=== PATIENT | male | born 1960 | race Caucasian/White ===

== ENCOUNTER 2018-07-21 09:51 | Inpatient (IN) ==
--- NOTE | 2018-07-06 08:55 | PAT Medication Instructions ---
Medication Instructions Date of Service July 06, 2018 Home Medications aspirin [Aspir-81] 81 mg PO DAILY lisinopril 10 mg PO QDD metformin 1,000 mg PO BID multivitamin [Multiple Vitamins] 1 tab PO DAILY omega 4-bgz-jfg-fish oil [Fish Oil] 1 cap PO DAILY simvastatin 20 mg PO HS STOP taking 2 weeks before surgery (or as soon as possible if surgery is within 2 weeks) omega 3-cuf-ygv-fish oil [Fish Oil] 1 cap PO DAILY DO NOT take the morning of surgery metformin 1,000 mg PO BID multivitamin [Multiple Vitamins] 1 tab PO DAILY Take morning of surgery With a small sip of water, OTHERWISE NOTHING TO EAT OR DRINK AFTER MIDNIGHT: aspirin [Aspir-81] 81 mg PO DAILY Take evening before surgery lisinopril 10 mg PO QDD metformin 1,000 mg PO BID simvastatin 20 mg PO HS Other Notes If you have any questions please call us at [phone] or [phone] or [phone] or [phone]
--- NOTE | 2018-07-07 11:05 | Anesthesiology Consultation ---
Date of Service July 07, 2018 Assessment & Plan (1) Encounter for pre-operative examination: Chart Review Chart Review: Acceptable Risk for Surgery and Patient seen in Pre Admission Testing Consults Requested medical (Dr. Cosby (07/12/18)) Patient was seen by PCP on 07/12 for preoperative evaluation visit. Per note, "the patient is considered a reasonable, low medical risk for the proposed surgery. I do not feel any further evaluation to be necessary." Teaching & Discussion Pre-Anesthesia Teaching/Discussion Notes: Instructed NPO after midnight before surgery, except medications with 15 cc of water. Medication instructions provided according to the PAT guidelines. History Surgery Operation Date: 07/21/18 07:45 Proposed Procedures p L4-S1 Removal of Hardware; L3-L4 Decompression and Fusion, Spinal Cord Monitoring - Romeo Shaikh DO Height/Weight Height: 6 ft Weight: 123.9 kg Allergies Allergy/AdvReac Type Severity Reaction Status Date / Time No Known Allergies Allergy Verified 07/05/18 11:47 Medications Home Medications Medication Instructions Recorded Confirmed Last Taken aspirin [Aspir-81] 81 mg PO DAILY 07/05/18 07/05/18 07/05/18 lisinopril 10 mg PO QDD 07/05/18 07/05/18 07/04/18 metformin 1,000 mg PO BID 07/05/18 07/05/18 07/05/18 multivitamin [Multiple Vitamins] 1 tab PO DAILY 07/05/18 07/05/18 Unknown omega 3-bjm-yyt-fish oil [Fish Oil] 1 cap PO DAILY 07/05/18 07/05/18 07/04/18 simvastatin 20 mg PO HS 07/05/18 07/05/18 07/04/18 Past Medical History Medical History Back problem Diabetes NIDDM Hyperlipidemia Hypertension Obesity Exercise / Class Metabolic Activity III < 4 Walking/Shop/Light housework (Less active now due to back pain which also causes leg weakness/pain. Able to climb FOS. Denies CP or SOB. ) Past Family History Family History Other Family history of colon cancer in mother Past Surgical History Surgical History History of colonoscopy x6 History of lumbar fusion 08/09/14 - MAC#3, ETT #8.0, Grade 1 View Past Anesthesia History No Hx of Anesthesia Complications and No Family Hx of Anesthesia Complications History of PONV No Hx of PONV Social History Smoking Status: Never smoker Do You Dip or Chew Tobacco: No (Quit 07/2014) Hx Alcohol Use: No Hx Substance Use: No substance use type: does not use Review of Systems Patient denies chest pain, shortness of breath, dyspnea on exertion, reflux, cough, wheezing, palpitations. +Joint Pain (Back and radiates down into legs) Physical Exam Vital Signs BP: 113/78 P: 68 R: 16 T: 98.4 SPO2: 97% on RA Constitutional + obese ENMT Thyromental Distance: > or= 3.5 Finger Breadths (3.5) Mallampati Class: II Neck normal visual inspection, trachea midline and + facial hair (Advised); neck extension not limited Respiratory normal respiratory effort Auscultation: lungs clear to auscultation bilaterally Cardiovascular Rate/Rhythm: regular rate and regular rhythm Heart Sounds: no murmur Vessels: no carotid bruit Neurologic moves all extremities Psychiatric Orientation: alert and oriented x 3 Testing Electrocardiogram Date: 07/07/18 Findings: + NSR @ (68) and + no change from (07/04/14) Incomplete Right Bundle Branch Block Chest X-Ray Date: 07/07/18 Findings: + NAD FINDINGS: PA and lateral chest radiographs are compared to study dated 07/04/2014 and correlated with chest CT dated 07/09/2014. The cardiomediastinal silhouette is unremarkable. A calcified granuloma is seen in the right upper lobe. The lungs and pleural spaces are otherwise clear. There is no pneumothorax. The bony thorax appears intact. IMPRESSION: No active disease in the chest. Stress Test Date: 07/31/14 Type: DSE Findings: + WNL Resting EF: 60-65% Resting LV Function: normal Resting RWMA: + none Valvular Disease: no significant valvular disease The primary indication after review was deemed appropriate and the examination was performed. The stress echo is negative for inducible ischemia. Occasional PVC's. Normal HR and BP response to dobutamine infusion. At rest, normal LV chamber size with mild concentric LVH. Normal LV systolic function without regional wall motion abnormality, EF 60-65%. Grade II diastolic dysfunction. No significant valvular pathology. Mild left atrial enlargement. Laboratory Results 07/07/18 11:38 07/07/18 11:38 PT 10.2 Seconds (9.0-12.0) 07/07/18 11:38 INR 1.0 (0.9-1.1) 07/07/18 11:38 APTT 25.9 Seconds (21.0-31.0) 07/07/18 11:38 Yellow 07/07/18 11:38 Clear (Clear) 07/07/18 11:38 8.5 (4.5-7.5) H 07/07/18 11:38 Ur Specific Rusk 1.015 (1.000-1.030) 07/07/18 11:38 Negative (Negative) 07/07/18 11:38 Negative (Negative) 07/07/18 11:38 Negative (Negative) 07/07/18 11:38 Negative (Negative) 07/07/18 11:38 Ur Leukocyte Esterase Negative (Negative) 07/07/18 11:38 Blood Type O Negative 07/07/18 11:38 Antibody Screen NEGATIVE 07/07/18 11:38
--- NOTE | 2018-07-07 12:08 | XRay Report ---
TWO VIEW CHEST CLINICAL HISTORY: Preoperative examination. FINDINGS: PA and lateral chest radiographs are compared to study dated 07/04/2014 and correlated with c hest CT dated 07/09/2014. The cardiomediastinal silhouette is unremarkable. A calcified granuloma is s een in the right upper lobe. The lungs and pleural spaces are otherwise clear. There is no pneumothor ax. The bony thorax appears intact. IMPRESSION: No active disease in the chest. Electronically signed by: Jose Elizondo M.D. 07/07/2018 12:07 PM
[2018-07-07 12:14] LABS: Basophils # (auto) 0.04 K/uL (0-0.2); Basophils % (auto) 0.5 %; Eosinophils # (auto) 0.12 K/uL (0-0.5); Eosinophils % (auto) 1.4 %; Immature Granulocytes # (auto) 0.02 K/uL (0.00-0.02); Immature Granulocytes % (auto) 0.2 %; Lymphocytes # (auto) 2.75 K/uL (1.2-3.4); Lymphocytes % (auto) 31.3 %; Mean Corpuscular Hgb Conc 34.1 g/dL (32-36); Mean Corpuscular Volume 91.7 fL (80-100); Mean Platelet Volume 10.7 fL (7.4-10.4); Monocytes # (auto) 0.68 K/uL (0.11-0.59); Monocytes % (auto) 7.7 %; Neutrophils # (auto) 5.18 K/uL (1.4-6.5); Neutrophils % (auto) 58.9 %; Platelet Count 268 K/uL (130-400); RDW Coefficient of Variation 13.7 % (11.5-14.5); RDW Standard Deviation 45.9 fL (36.4-46.3); White Blood Count 8.79 K/uL (4.8-10.8)
[2018-07-07 12:19] LABS: Appearance Urine Clear (Clear); Bilirubin Urine Negative (Negative); Color Urine Yellow; Glucose Urine UA Negative (Negative); Ketones Urine Negative (Negative); Leukocyte Esterase Urine Negative (Negative); Nitrite Urine Negative (Negative); Protein Urine Negative (Negative); Specific Gravity Urine 1.015 (1.000-1.030); Urobilinogen Urine Negative (Negative); pH Urine 8.5 (4.5-7.5)
[2018-07-07 12:22] LABS: BUN Creatinine Ratio 14.2 (10-20); Creatinine Clr Calc Pharmacy 103.3 ml/min; Est GFR (African American) 89.2
[2018-07-07 12:31] LABS: Partial Thromboplastin Time 25.9 Seconds (21.0-31.0); Prothrombin Time 10.2 Seconds (9.0-12.0)
[~2018-07-21 09:51] MED LIST: ACETAMINOPHEN 500 MG TAB PO SCH; CEFAZOLIN 2000MG 2,000 MG/15 ML SYR IV SCH; CEFAZOLIN 3000MG 65 ML IV SCH; CeleBREX 200 MG CAP PO SCH; GABAPENTIN 300 MG x 2 PO SCH; LR 15ML/HR IV SCH
[2018-07-21] MEDS ORDERED: HYDROmorphone INJ 2 MG/ML SYR/VIAL IV PRN (10:46)
[2018-07-21] MEDS ORDERED: ePHEDrine sulfate 50 MG/ML AMP IV PRN (10:46)
[2018-07-21] MEDS ORDERED: DEXAMETHASONE SOD INJ 4 MG/ML VIAL IV PRN (10:46)
[2018-07-21] MEDS ORDERED: ATROPINE SULFATE 0.1 MG/ML 10ML SYR IV PRN (10:46)
[2018-07-21] MEDS ORDERED: fentaNYL citrate 100 MCG/2 ML VIAL IV PRN (10:46)
[2018-07-21] MEDS ORDERED: ONDANSETRON INJ 2 MG/ML 2 ML VIAL IV PRN ×2 (10:46→16:00)
--- NOTE | 2018-07-21 11:42 | History & Physical Bridge Note ---
Date of Service July 21, 2018 History & Physical Bridge Note I have examined the patient, reviewed the History & Physical and in the interval since the performance of the History & Physical I have noted the following changes of clinical significance: no changes noted
--- NOTE | 2018-07-21 11:44 | History & Physical Report ---
Date of Service July 21, 2018 Assessment & Plan (1) Lumbar stenosis with neurogenic claudication: Removal of hardware L4-S1 decompression and fusion L3-4 Present on Admission?: Yes History of Present Illness Chief Complaint: Back and leg pain Primary Care Provider: George Cosby MD This is a 57-year-old male that presents with back and bilateral leg pain. After failing extensive course of nonoperative care is here for surgical intervention. Allergies Allergy/AdvReac Type Severity Reaction Status Date / Time No Known Allergies Allergy Verified 07/05/18 11:47 Home Medications Home Medications Medication Instructions Recorded Confirmed Type aspirin [Aspir-81] 81 mg PO DAILY 07/05/18 07/05/18 History lisinopril 10 mg PO QDD 07/05/18 07/05/18 History metformin 1,000 mg PO BID 07/05/18 07/05/18 History multivitamin [Multiple Vitamins] 1 tab PO DAILY 07/05/18 07/05/18 History omega 3-ovs-fkz-fish oil [Fish Oil] 1 cap PO DAILY 07/05/18 07/05/18 History simvastatin 20 mg PO HS 07/05/18 07/05/18 History Past Med/Surg History Medical History Back problem Diabetes NIDDM Hyperlipidemia Hypertension Obesity Surgical History History of colonoscopy x6 History of lumbar fusion 08/09/14 - MAC#3, ETT #8.0, Grade 1 View Family History Other Family history of colon cancer in mother Social History Preferred Language: Niuean Communication Ability: Effective Cotton Stripper Required: Yes Beliefs That Will Affect Care: None Current Living Situation: Spouse Other Information That Helps Us Care for You: No Feels Safe at Home: Yes Safety Concerns: Feels Safe At This Time Smoking Status: Never smoker Do You Dip or Chew Tobacco: No (quit chewing tobacco in 2014) Hx Alcohol Use: No Hx Substance Use: No Physical Exam Vital Signs (Past 24 Hours): Last Vital Signs Temp 37.3 C 07/21/18 10:08 Pulse 69 07/21/18 10:08 Resp 20 07/21/18 10:08 BP 152/95 H 07/21/18 10:08 Pulse Ox 96 07/21/18 10:08 Physical Exam: Patient is alert and oriented with neurologically and
[2018-07-21] MEDS ORDERED: NEOSTIGMINE METHYLSULFATE 1 MG/ML 10ML VIAL ONE (11:49)
[2018-07-21] MEDS ORDERED: LIDOCAINE HCL 2% 2 ML VIAL/AMP(20MG/ML) INFIL ONE (11:49)
[2018-07-21] MEDS ORDERED: fentaNYL citrate 100 MCG/2 ML VIAL ONE (11:49)
[2018-07-21] MEDS ORDERED: GLYCOPYRROLATE 0.2 MG/ML VIAL ONE (11:49)
[2018-07-21] MEDS ORDERED: DEXAMETHASONE SOD INJ 4 MG/ML VIAL ONE (11:49)
[2018-07-21] MEDS ORDERED: ONDANSETRON INJ 2 MG/ML 2 ML VIAL ONE ×2 (11:49→13:47)
[2018-07-21] MEDS ORDERED: PROPOFOL IV EMULSION 10 MG/ML 20 ML VIAL IV ONE (11:49)
[2018-07-21] MEDS ORDERED: MIDAZOLAM HCL 1 MG/ML 2ML VIAL ONE (11:50)
[2018-07-21] MEDS ORDERED: LARYING-O-JET KIT (LTA) ONE (11:50)
[2018-07-21] MEDS ORDERED: HYDROmorphone INJ 2 MG/ML SYR/VIAL ONE (11:50)
[2018-07-21] MEDS ORDERED: BACITRACIN INJ 50,000 UNIT VIAL ONE (12:02)
[2018-07-21] MEDS ORDERED: BUPIVACAINE/EPINEPHRINE 0.5% MPF 1:200,000 30 ML VIAL ONE (12:02)
[2018-07-21] MEDS ORDERED: ePHEDrine sulfate 50 MG/ML SYR ONE (12:54)
[2018-07-21] MEDS ORDERED: FLOSEAL HEMOSTATIC MATRIX 10ML TOP ONE (13:08)
[2018-07-21] MEDS ORDERED: ALBUMIN HUMAN 5% 12.5 GM/250 ML VIAL IV ONE ×2 (13:29→14:14)
[2018-07-21] MEDS ORDERED: ROCURONIUM BROMIDE 10 MG/ML 5 ML VIAL ONE (13:47)
--- NOTE | 2018-07-21 14:52 | Fluoroscopy Report ---
FL lumbar spine 2-3V CLINICAL HISTORY: 57 years-old Male presenting with L3-L4 DECOMPRESSION. TECHNIQUE: 2 fluoroscopic image(s) recorded as part of an intraoperative procedure. COMPARISON: 08/09/2014. FINDINGS/IMPRESSION: Removal of prior hardware, which previously span L4-S1. Postsurgical changes of L3-4 posterior bilate ral transpedicular screw and tom fixation. Interbody spacers at L3-4 through L5-S1. Laminectomy baron es at L3-L5. Please see surgical report for further details. Fluoroscopy dosage (mGy): 8.66. Fluoroscopy time: 9.9 seconds. Number or time of high level fluoroscopy (HLF), digital spot, or digital subtraction images: 0. Electronically signed by: Gian Callejas M.D. 07/21/2018 2:50 PM
--- NOTE | 2018-07-21 15:00 | Operative Report ---
Post Operative Report Pre & Post Diagnosis Operation Date: 07/21/18 11:45 Pre-Op Diagnosis: Spinal Stenosis, Lumbar Region with Neurogenic Claudication Obesity Post-Op Diagnosis: Same Procedure Operation Date: 07/21/18 11:45 Actual Procedures #1 removal of posterior instrumentation L4-5 L5-S1. #2 exploration of fusion L4-5 L5-S1. #3 lumbar decompression with bilateral medial facetectomies and foraminotomies L2-3 L3-4. #4 posterior spinal fusion L3-4. #5 placement posterior instrumentation L3-4. #6 interbody fusion L3-4. #7 placement of peek cage 13 x 26 mm of L3-4. #8 placement of local autograft in the posterior lateral gutters. #9 aspirin infuse collagen sponge combined with master graft in the posterior lateral gutters and ostial amp in the interbody space. Surgeon Romeo Shaikh, Contact Lens Technician None Estimated Blood Loss 600 Findings See Below The patient is 6 foot tall and 124 kg with a BMI of 37. This combined with a blood loss in excess of 600 cc made the case technically difficult adding at least 50% increase in operative time. It did require our deepest retractors and longus Kerrisons to perform the procedure. Specimens None Indications This is a 49-year-old male well-known to me that presents with the above- mentioned diagnosis. After failing extensive course of nonoperative care like to undergo the above-mentioned procedure. Description of Procedure Patient was met with identified and informed consent obtained. He was then taken to the operative suite underwent intubation placed in a prone position the Jordan table on top of the Zain frame. All bony prominences well-padded eyes inspected to ensure no external pressure placed upon the peer at this point the lumbar spine was prepped and draped in a normal sterile fashion. Sharp dissection with the assistance of Bovie cautery was performed down to and exposing the lamina and transverse processes of L3 and instrumentation at L4-L5 and this S1 levels bilaterally. And then proceeded to remove the hardware bilaterally explore the fusion mass noting it to be intact. I then performed a complete laminectomy of L3 partial laminectomy of L2 including bilateral medial facetectomies and foraminotomies to address severe spinal stenosis. Pedicle screws were then placed in L3 and L4 bilaterally with assistance of fluoroscopy and the probably size tom. Placed by way of a transforaminal approach and left complete discectomy was performed in plate graded to subcortical bleeding bone and a 14 x 26 mm peek cage filled with ostium bone graft tapped in position. The rods were then locked in final position bilaterally. The transverse processes of L3 and L4 burred to subcortical bleeding bone. Infuse collagen sponge mass graft local autograft placed in the posterior lateral gutters. 15 round JOHAN drain inserted. The incision was then closed with 1 Vicryl in the fascia 2-0 Vicryl subcutaneous and 4-0 Monocryl for final skin closure. Steri- Strip sterile dressing placed. Patient will continue to PACU stable condition. He is no spinal cord monitoring utilized throughout the procedure and no changes noted. I attest to the content of the Intraoperative Record and any orders documented therein. Any exceptions are noted below.
--- NOTE | 2018-07-21 15:53 | Anesthesiology Progress Note ---
Date of Service July 21, 2018 Anesthesia Post Procedure Vital Signs Vital Signs: Temp Pulse Pulse Resp BP Pulse Ox 07/21/18 15:45 36.2 C L 70 16 121/71 95 07/21/18 15:35 70 14 119/66 95 07/21/18 15:25 78 19 116/73 96 07/21/18 15:15 71 18 121/65 95 07/21/18 15:07 37.1 C 93 H 17 94/58 L 98 07/21/18 10:08 37.3 C 69 20 152/95 H 96 Pain Intensity Back: Pain Intensity: 5 Transfer of Care Handoff Completed per policy Notes Mental Status: alert / awake / arousable Patient Amnestic to Procedure: Yes Nausea / Vomiting: adequately controlled Pain: adequately controlled Airway Patency, RR, SpO2: stable & adequate BP & HR: stable & adequate Hydration State: stable & adequate Anesthetic Complications: no major complications apparent and Pt Satisfied with anesthetic care
[2018-07-21] MEDS ORDERED: LORazepam 0.5 MG TAB PO PRN (16:00)
[2018-07-21] MEDS ORDERED: ACETAMINOPHEN 1,000 MG/100 ML VIAL IV PRN (16:00)
[2018-07-21] MEDS ORDERED: DO NOT ADMINISTER FLU VACCINE PRN (16:00)
[2018-07-21] MEDS ORDERED: DO NOT ADMINISTER PNEUMOCOCCAL VACCINE PRN (16:00)
[2018-07-21] MEDS ORDERED: BISACODYL 10 MG SUPP PR PRN (16:00)
[2018-07-21] MEDS ORDERED: ACETAMINOPHEN 500 MG TAB PO PRN (16:00)
[2018-07-21] MEDS ORDERED: ONDANSETRON 4 MG TAB PO PRN (16:00)
[2018-07-21] MEDS ORDERED: OXYCODONE HCL IR 5 MG TAB (IMMEDIATE RELEASE) PO PRN (16:00)
[2018-07-21] MEDS ORDERED: ALUMINUM/MAGNESIUM SUSP 30 ML UDC PO PRN (16:00)
[2018-07-21] MEDS ORDERED: MAGNESIUM HYDROXIDE SUSP 30 ML UDC PO PRN (16:00)
[2018-07-21] MEDS ORDERED: SOD PHOSPHATE/SOD BIPHOSPHATE ENEMA 132 ML BTL PR PRN (16:00)
[2018-07-21] MEDS ORDERED: FAMOTIDINE 20 MG TAB PO PRN (16:00)
[2018-07-21] MEDS ORDERED: METOCLOPRAMIDE HCL INJ 5 MG/ML 2 ML VIAL IV PRN (16:00)
[2018-07-21] MEDS ORDERED: LORazepam 0.5 MG/1 ML VIAL IV PRN (16:00)
[2018-07-21] MEDS ORDERED: HYDROmorphone INJ 0.5 MG/0.5 ML SYR IV PRN (16:00)
[2018-07-21] MEDS ORDERED: PROMETHAZINE HCL 12.5 MG in SODIUM CHLORIDE 0.9% 50 ML IV PRN (16:00)
[2018-07-21] MEDS ORDERED: DEXTROSE 50% 50 ML SYRINGE IV PRN (17:13)
[2018-07-21] MEDS ORDERED: GLUCOSE 40% GEL 15 GM TUBE PO PRN (17:13)
[2018-07-21] MEDS ORDERED: GLUCOSE 10 TABS/TUBE PO PRN (17:13)
[2018-07-21] MEDS ORDERED: CARBOHYDRATES FOR HYPOGLYCEMIA PO PRN (17:13)
[2018-07-21] MEDS ORDERED: GLUCAGON FOR INJ 1 MG VIAL SQ PRN (17:13)
--- NOTE | 2018-07-21 17:16 | Internal Medicine Consult Note ---
Date of Consultation July 21, 2018 Assessment & Plan (1) Lumbar stenosis with neurogenic claudication: S/P Removal of Instrumentation, facetectomies, spinal fusion l of instrumentation, lumbar decompression POD #0 by Estimated Blood Loss ~600 CC Pain is controlled Monitor for post OP anemia Bowel regimen to prevent constipation Activity & DVT Px as per Primary team Gentle IV fluids Labs AM DM Type II: Will hold oral diabetic meds Last A1c: 5.8 on 06/27/17 ISS, basal Insulin, Accu checks, Diabetic diet HTN: Continue Lisinopril Monitor Dyslipidemia: Continue Statin DVT Px: As per Primary Team Disposition: As per Primary Team PT/OT History of Present Illness Reason for Consultation: Postop medical management Requesting Physician: Dr. Romeo Shaikh Attending Physician: Romeo Shaikh, History of Present Illness Patient is a 57-year-old male with history of diabetes, hypertension, dyslipidemia, lumbago and other problems was seen and evaluated postoperatively. Patient underwent lumbar decompression and fusion surgery by Dr. Shaikh for lumbar spinal stenosis with neurogenic claudication. Patient is doing well postop. Currently he denies any significant pain at surgical site. Also denies any chest pain, shortness of breath, nausea, dizziness, abdominal pain, numbness and tingling in feet. Offers no other complaints currently. Patient received Decadron intraoperatively. Will manage blood sugar levels with insulin therapy. Allergies Allergy/AdvReac Type Severity Reaction Status Date / Time No Known Allergies Allergy Verified 07/05/18 11:47 Home Medications Home Medications Medication Instructions Recorded Confirmed Type aspirin [Aspir-81] 81 mg PO DAILY 07/05/18 07/05/18 History lisinopril 10 mg PO QDD 07/05/18 07/05/18 History metformin 1,000 mg PO BID 07/05/18 07/05/18 History multivitamin [Multiple Vitamins] 1 tab PO DAILY 07/05/18 07/05/18 History omega 1-dto-nye-fish oil [Fish Oil] 1 cap PO DAILY 07/05/18 07/05/18 History simvastatin 20 mg PO HS 07/05/18 07/05/18 History Patient History Medical History Back problem Diabetes NIDDM Hyperlipidemia Hypertension Obesity Surgical History History of colonoscopy x6 History of lumbar fusion 08/09/14 - MAC#3, ETT #8.0, Grade 1 View Family History Other Family history of colon cancer in mother Social History Preferred Language: Upper Sorbian Communication Ability: Effective Telephone Station Repairer Required: Yes Beliefs That Will Affect Care: None Current Living Situation: Spouse Other Information That Helps Us Care for You: No Feels Safe at Home: Yes Safety Concerns: Feels Safe At This Time Smoking Status: Never smoker Do You Dip or Chew Tobacco: No (quit chewing tobacco in 2015) Hx Alcohol Use: No Hx Substance Use: No Review of Systems Review of Systems: All systems reviewed & are unremarkable except as noted in HPI & below Physical Exam Physical Exam: Physical Exam: Vitals signs as noted above General Appearance:Moderately built and nourished, no apparent distress Head: normocephalic, Atraumatic Eyes: normal inspection, EOMI Neck: supple, Trachea midline Respiratory/Chest: Normal breath sounds, CTA Cardiovascular: S1, S2, No murmur Abdomen/GI:Soft, Non tender, Bowel sounds present Back: Surgical site in dressing, + drain Extremities/Musculoskelatal:normal inspection, no edema Neurologic/Psych:AAOX3, grossly no focal neurological deficits Skin: normal color, warm Results & Data Vital Signs (Past 12 Hours) Vital Signs Temp Pulse Pulse Pulse Resp BP Pulse Ox 07/21/18 17:00 36.3 C L 76 18 115/76 95 07/21/18 16:00 36.9 C 74 74 76 17 125/79 97 07/21/18 15:45 36.2 C L 70 16 121/71 95 07/21/18 15:35 70 14 119/66 95 07/21/18 15:25 78 19 116/73 96 07/21/18 15:15 71 18 121/65 95 07/21/18 15:07 37.1 C 93 H 17 94/58 L 98 07/21/18 10:08 37.3 C 69 20 152/95 H 96 Laboratory Results Lumbar X ray: Removal of prior hardware, which previously span L4-S1. Postsurgical changes of L3-4 posterior bilateral transpedicular screw and tom fixation. Interbody spacers at L3-4 through L5-S1. Laminectomy changes at L3-L5.
[2018-07-21] MEDS: LISINOPRIL 10 MG TAB PO SCH (18:11)
[2018-07-21] MEDS: SODIUM CHLORIDE 0.9% 1000ML 1,000 ML IV SCH (19:51)
[2018-07-21] MEDS: KETOROLAC 30 MG/ML VIAL IV SCH ×2 (19:52→23:26)
[2018-07-21] MEDS: CEFAZOLIN 2000MG 2,000 MG/15 ML SYR IV SCH (21:20)
[2018-07-21] MEDS: DOCUSATE SODIUM/SENNA 50/8.6MG TAB PO SCH (21:28)
[2018-07-21] MEDS: SIMVASTATIN 20 MG TAB PO SCH (21:28)
[2018-07-21] MEDS: INSULIN ASPART 100 UNITS/ML 3 ML PEN SC SCH (21:29)
[2018-07-21] MEDS: INSULIN GLARGINE SOLOSTAR 100 UNITS/ML 3 ML PEN SC SCH (21:31)
[2018-07-22] MEDS: SODIUM CHLORIDE 0.9% 1000ML 1,000 ML IV SCH ×2 (02:22→06:05)
[2018-07-22] MEDS: CEFAZOLIN 2000MG 2,000 MG/15 ML SYR IV SCH (04:09)
[2018-07-22] MEDS: KETOROLAC 30 MG/ML VIAL IV SCH ×2 (06:01→10:46)
[2018-07-22] MEDS: POLYETHYLENE (MIRALAX) 17 GM PACK PO SCH ×3 (06:06→18:13)
[2018-07-22 06:12] LABS: Hematocrit (blood only) 33.4 % (42-52); Hemoglobin 11.2 g/dL (14.0-18.0); Immature Granulocytes # (auto) 0.02 K/uL (0.00-0.02); Immature Granulocytes % (auto) 0.1 %; Lymphocytes # (auto) 1.23 K/uL (1.2-3.4); Lymphocytes % (auto) 8.1 %; Mean Corpuscular Hgb Conc 33.5 g/dL (32-36); Mean Corpuscular Volume 91.5 fL (80-100); Monocytes # (auto) 0.69 K/uL (0.11-0.59); Monocytes % (auto) 4.6 %; Neutrophils # (auto) 13.17 K/uL (1.4-6.5); Neutrophils % (auto) 87.2 %; Platelet Count 206 K/uL (130-400); RDW Coefficient of Variation 13.8 % (11.5-14.5); RDW Standard Deviation 45.8 fL (36.4-46.3); Red Blood Count 3.65 M/uL (4.7-6.1); White Blood Count 15.11 K/uL (4.8-10.8)
[2018-07-22 06:46] LABS: BUN Creatinine Ratio 16.8 (10-20); Calcium 8.1 mg/dl (8.5-10.1); Creatinine Clr Calc Pharmacy 93.6 ml/min; Est GFR (African American) 79.2; Est GFR (Non-African American) 68.3; Potassium 4.2 mmol/L (3.5-5.1)
[2018-07-22] MEDS: MULTIVITAMIN TAB PO SCH (08:45)
[2018-07-22] MEDS: ASPIRIN 81 MG ECTAB PO SCH (08:45)
[2018-07-22] MEDS: INSULIN ASPART 100 UNITS/ML 3 ML PEN SC SCH ×4 (08:46→20:44)
[2018-07-22] MEDS: INSULIN GLARGINE SOLOSTAR 100 UNITS/ML 3 ML PEN SC SCH ×2 (08:47→20:43)
--- NOTE | 2018-07-22 10:26 | Orthopedic Progress Note ---
Date of Service July 22, 2018 Assessment & Plan (1) Lumbar stenosis with neurogenic claudication: This time we will advance physical therapy monitor his JOHAN output and anticipate discharge home Tuesday. Present on Admission?: Yes Subjective Back pain is controlled leg symptoms improved. Physical Exam Physical Exam: On exam is good strength testing is sitting the chair at the bedside. Results & Data Vital Signs (Past 12 Hours) Vital Signs Temp Pulse Pulse Resp BP BP Pulse Ox 07/22/18 06:59 36.7 C 59 L 17 106/68 92 07/22/18 04:00 36.5 C 68 18 108/65 94 07/21/18 23:40 36.8 C 63 16 112/68 95
--- NOTE | 2018-07-22 11:25 | Anesthesiology Progress Note ---
Date of Service July 22, 2018 Anesthesia Post Procedure Vital Signs Vital Signs: Temp Pulse Pulse Pulse Resp BP BP 07/22/18 06:59 36.7 C 59 L 17 106/68 07/22/18 04:00 36.5 C 68 18 108/65 07/21/18 23:40 36.8 C 63 16 112/68 07/21/18 22:20 18 07/21/18 21:00 18 07/21/18 20:21 75 16 125/85 07/21/18 19:08 36.6 C 83 16 133/77 07/21/18 17:56 36.5 C 78 16 113/74 07/21/18 17:00 36.3 C L 76 18 115/76 07/21/18 16:00 36.9 C 74 74 76 17 125/79 07/21/18 15:45 36.2 C L 70 16 121/71 07/21/18 15:35 70 14 119/66 07/21/18 15:25 78 19 116/73 07/21/18 15:15 71 18 121/65 07/21/18 15:07 37.1 C 93 H 17 94/58 L Pulse Ox 07/22/18 06:59 92 07/22/18 04:00 94 07/21/18 23:40 95 07/21/18 22:20 96 07/21/18 21:00 97 07/21/18 20:21 98 07/21/18 19:08 98 07/21/18 17:56 97 07/21/18 17:00 95 07/21/18 16:00 97 07/21/18 15:45 95 07/21/18 15:35 95 07/21/18 15:25 96 07/21/18 15:15 95 07/21/18 15:07 98 Pain Intensity Back: Pain Intensity: 1 Transfer of Care Handoff Completed per policy Notes Mental Status: alert / awake / arousable and participated in evaluation Patient Amnestic to Procedure: Yes Nausea / Vomiting: adequately controlled Pain: adequately controlled Airway Patency, RR, SpO2: stable & adequate BP & HR: stable & adequate Hydration State: stable & adequate Anesthetic Complications: no major complications apparent and Pt Satisfied with anesthetic care
--- NOTE | 2018-07-22 15:18 | Hospitalist Progress Note ---
Date of Service July 22, 2018 Assessment & Plan (1) Lumbar stenosis with neurogenic claudication: S/P Removal of Instrumentation, facetectomies, spinal fusion l of instrumentation, lumbar decompression POD #1 by Estimated Blood Loss ~600 CC Pain is controlled Monitor for post OP anemia Bowel regimen to prevent constipation Activity & DVT Px as per Primary team Doing well Post Op DM Type II: Will hold oral diabetic meds Last A1c: 5.8 on 06/27/17 ISS, basal Insulin, Accu checks, Diabetic diet HTN: Continue Lisinopril Monitor Dyslipidemia: Continue Statin DVT Px: As per Primary Team Disposition: As per Primary Team PT/OT Subjective Patient is seen and examined bedside Back pain is controlled Denies any numbness or tingling in feet Also denies any chest pain, shortness of breath, dizziness, abdominal pain Offers no other complaints Review of Systems Review of Systems: All systems reviewed & are unremarkable except as noted in HPI & below Physical Exam Physical Exam: Physical Exam: Vitals signs as noted above General Appearance:Moderately built and nourished, no apparent distress Head: normocephalic, Atraumatic Eyes: normal inspection, EOMI Neck: supple, Trachea midline Respiratory/Chest: Normal breath sounds, CTA Cardiovascular: S1, S2, No murmur Abdomen/GI:Soft, Non tender, Bowel sounds present Back: Surgical site in dressing, + drain Extremities/Musculoskelatal:normal inspection, no edema Neurologic/Psych:AAOX3, grossly no focal neurological deficits Skin: normal color, warm Results & Data Vital Signs (Past 12 Hours) Vital Signs Temp Pulse Pulse Resp BP BP Pulse Ox 07/22/18 12:00 36.6 C 78 16 117/72 96 07/22/18 06:59 36.7 C 59 L 17 106/68 92 07/22/18 04:00 36.5 C 68 18 108/65 94 Laboratory Results Short CBC 07/22/18 Range/Units 05:04 WBC 15.11 H (4.8-10.8) K/uL Hgb 11.2 L (14.0-18.0) g/dL Hct 33.4 L (42-52) % Plt Count 206 (130-400) K/uL BMP 07/22/18 05:04 Sodium 140 Potassium 4.2 Chloride 108 H Carbon Dioxide 26 BUN 20 H Creatinine 1.17 Glucose 126 H Calcium 8.1 L
[2018-07-22] MEDS: LISINOPRIL 10 MG TAB PO SCH (18:13)
[2018-07-22] MEDS: TRAMADOL HCL 50 MG TABLET PO PRN (20:40)
[2018-07-22] MEDS: SIMVASTATIN 20 MG TAB PO SCH (20:42)
[2018-07-22] MEDS: DOCUSATE SODIUM/SENNA 50/8.6MG TAB PO SCH (20:43)
[2018-07-23] MEDS: POLYETHYLENE (MIRALAX) 17 GM PACK PO SCH ×4 (00:27→17:03)
[2018-07-23 05:51] LABS: Hematocrit (blood only) 33.2 % (42-52); Hemoglobin 11.5 g/dL (14.0-18.0); Mean Corpuscular Hgb Conc 34.6 g/dL (32-36); Mean Corpuscular Volume 91.5 fL (80-100); Platelet Count 208 K/uL (130-400); RDW Coefficient of Variation 14.1 % (11.5-14.5); RDW Standard Deviation 47.3 fL (36.4-46.3); Red Blood Count 3.63 M/uL (4.7-6.1); White Blood Count 16.17 K/uL (4.8-10.8)
[2018-07-23 06:20] LABS: BUN Creatinine Ratio 21.3 (10-20); Calcium 8.8 mg/dl (8.5-10.1); Est GFR (African American) 81.7; Est GFR (Non-African American) 70.5; Potassium 4.2 mmol/L (3.5-5.1)
--- NOTE | 2018-07-23 07:57 | Orthopedic Progress Note ---
Date of Service July 23, 2018 Assessment & Plan (1) Lumbar stenosis with neurogenic claudication: Patient is doing well postop day #2. Continue with pain control and ambulation. He has not had a bowel movement and will continue with his bowel regimen. All likelihood will be able to discharge him to home tomorrow. Subjective Patient is seen bedside postoperative day #2. He is status post removal of hardware L4-S1 decompression fusion at L3-4. Overall he is doing well he has some soreness in his back. He is not having any pain going down his legs. He did a lot of walking yesterday and it felt improved compared to his preoperative situation. He is not having any nausea or vomiting he is tolerating p.o. well. He denies any other numbness, tingling, or paresthesias. Physical Exam Physical Exam: On exam he is alert and oriented. His abdomen soft nontender scabs are supple nontender his strength and sensation both intact his dressing is clean dry and intact JOHAN drains in place and holding suction. Results & Data Vital Signs (Past 12 Hours) Vital Signs Temp Pulse Resp BP Pulse Ox 07/23/18 07:25 36.6 C 62 16 139/82 97 07/22/18 22:52 36.5 C 59 L 16 125/78 95
[2018-07-23] MEDS: ASPIRIN 81 MG ECTAB PO SCH (08:42)
[2018-07-23] MEDS: MULTIVITAMIN TAB PO SCH (08:42)
[2018-07-23] MEDS: INSULIN ASPART 100 UNITS/ML 3 ML PEN SC SCH ×4 (08:42→21:36)
[2018-07-23] MEDS: INSULIN GLARGINE SOLOSTAR 100 UNITS/ML 3 ML PEN SC SCH ×2 (08:42→21:36)
--- NOTE | 2018-07-23 16:55 | Hospitalist Progress Note ---
Date of Service July 23, 2018 Assessment & Plan (1) Lumbar stenosis with neurogenic claudication: S/P Removal of Instrumentation, facetectomies, lumbar decompression & fusion at L3-4 POD #2 by Estimated Blood Loss ~600 CC Pain is controlled Monitor for post OP anemia Bowel regimen to prevent constipation Activity & DVT Px as per Primary team Continue current management Ambulating with no issues DM Type II: Will hold oral diabetic meds Last A1c: 5.8 on 06/27/17 ISS, basal Insulin, Accu checks, Diabetic diet HTN: Continue Lisinopril Monitor Dyslipidemia: Continue Statin DVT Px: As per Primary Team Disposition: As per Primary Team PT/OT Subjective Patient is seen and examined bedside Mild soreness of back at surgical site +Flatus, No BM yet Ambulated today with no issues Denies Chest pain, shortness of breath, dizziness, abdominal pain Review of Systems Review of Systems: All systems reviewed & are unremarkable except as noted in HPI & below Physical Exam Physical Exam: Physical Exam: Vitals signs as noted above General Appearance:Moderately built and nourished, no apparent distress Head: normocephalic, Atraumatic Eyes: normal inspection, EOMI Neck: supple, Trachea midline Respiratory/Chest: Normal breath sounds, CTA Cardiovascular: S1, S2, No murmur Abdomen/GI:Soft, Non tender, Bowel sounds present Back: Surgical site in dressing, + drain Extremities/Musculoskelatal:normal inspection, no edema Neurologic/Psych:AAOX3, grossly no focal neurological deficits Skin: normal color, warm Results & Data Vital Signs (Past 12 Hours) Vital Signs Temp Pulse Resp BP Pulse Ox 07/23/18 07:25 36.6 C 62 16 139/82 97 Laboratory Results Short CBC 07/23/18 Range/Units 05:19 WBC 16.17 H (4.8-10.8) K/uL Hgb 11.5 L (14.0-18.0) g/dL Hct 33.2 L (42-52) % Plt Count 208 (130-400) K/uL BMP 07/23/18 05:19 Sodium 142 Potassium 4.2 Chloride 107 Carbon Dioxide 28 BUN 24 H Creatinine 1.14 Glucose 106 H Calcium 8.8
[2018-07-23] MEDS: LISINOPRIL 10 MG TAB PO SCH (17:03)
[2018-07-23] MEDS ORDERED: Nursing to Pharmacy Communication ONE (19:37)
[2018-07-23] MEDS: TRAMADOL HCL 50 MG TABLET PO PRN (19:50)
[2018-07-23] MEDS: DOCUSATE SODIUM/SENNA 50/8.6MG TAB PO SCH (21:34)
[2018-07-23] MEDS: SIMVASTATIN 20 MG TAB PO SCH (21:35)
[2018-07-24 05:39] LABS: Hematocrit (blood only) 32.4 % (42-52); Hemoglobin 11.1 g/dL (14.0-18.0); Mean Corpuscular Hgb Conc 34.3 g/dL (32-36); Mean Platelet Volume 10.8 fL (7.4-10.4); Platelet Count 206 K/uL (130-400); RDW Coefficient of Variation 14.3 % (11.5-14.5); RDW Standard Deviation 47.7 fL (36.4-46.3); Red Blood Count 3.52 M/uL (4.7-6.1); White Blood Count 13.29 K/uL (4.8-10.8)
[2018-07-24] MEDS: TRAMADOL HCL 50 MG TABLET PO PRN (08:09)
[2018-07-24] MEDS: ASPIRIN 81 MG ECTAB PO SCH (08:10)
[2018-07-24] MEDS: MULTIVITAMIN TAB PO SCH (08:10)
[2018-07-24] MEDS: INSULIN ASPART 100 UNITS/ML 3 ML PEN SC SCH (08:32)
[2018-07-24] MEDS: INSULIN GLARGINE SOLOSTAR 100 UNITS/ML 3 ML PEN SC SCH (08:32)
--- NOTE | 2018-07-24 10:15 | Discharge Summary ---
Date of Service July 24, 2018 Admission HPI Per Admitting Provider This is a 57-year-old male that presents with back and bilateral leg pain. After failing extensive course of nonoperative care is here for surgical intervention. Principal Diagnosis Lumbar spinal stenosis with neurogenic claudication Discharge Data Allergies Allergy/AdvReac Type Severity Reaction Status Date / Time No Known Allergies Allergy Verified 07/05/18 11:47 Consultations 07/21/18 16:00 Consult Case Management - Discharge Planning Routine Consult Hospitalist Routine Procedures Performed Operation Date: 07/21/18 11:45 Actual Procedures p L3-L4 Decompression and Fusion, Insertion of Interbody L3-L4, Spinal Cord Monitoring, Application of OsteoAMP, and Bone Morphogenetic Protein(Not Applicable) - Romeo Shaikh DO s L4-S1 Removal of Hardware;(Not Applicable) - Romeo Shaikh DO Ordered Studies 07/21/18 11:45 FL fluoroscopy <1hr Routine FL lumbar spine 2-3V Routine Hospital Course (1) Lumbar stenosis with neurogenic claudication: Patient underwent lumbar decompression fusion tolerated as well as taken to orthopedic for postoperative. Postop day 1 leg symptoms improved back pain controlled progressed to postop day #2 JOHAN drain decreasing appropriately. Hannon bsequently discharged home on postop day #3. Discharge orders and instructions from the chart for further review. Total Time Total Time Spent Total Time Spent (In Minutes): 20 minutes Discharge Plan Discharge Items Patient Disposition: Home - Self-Care Reason For Visit: Spinal Stenosis, Lumbar Region with Neurogenic Discharge Diagnosis: lumbar stenosis Discharge Goals: Decrease discomfort Activity: Per 'Additional Instructions' section Non-emergency contact: Primary Care Provider Call non-emergency contact if: you have any medication questions Follow-up/Referrals: George Cosby MD [Primary Care Provider] - Diet: Regular Addtl Provider Instructions: ACTIVITY RECOMMENDATIONS: SELF CARE INSTRUCTIONS AFTER THORACIC/LUMBAR FUSIONS 1. You may walk to your tolerance. It is good exercise for your legs and back. Expect some back and intermittent leg aches and pains. 2. You may perform "counter-top" level activities (make a sandwich, carlo with a project, etc.). 3. No bending or lifting of more than 10 pounds or back twisting of any nature (roll like a log when turning in bed). 4. You may ride in a car for 20-30 minutes at a time. No driving until after your first visit with your doctor. 5. Frequent changes of position and restricting sitting to 30 minutes at a time will help limit the amount of back spasms and stiffness you may experience. 6. You may discontinue the use of ambulatory aids (cane, crutches, etc.) once your strength and confidence allow. 7. You may ordering machine operator the shower and let water strike your incision when you arrive home at least once daily. Do not take a tub bath, sit in a hot tub or go into a swimming pool until after your first recheck in the office. SPECIAL CARE INSTRUCTIONS: VERY IMPORTANT TO READ AND REVIEW A. Your surgical incision has been closed with a cosmetic suture under the skin that will dissolve in about 6 weeks. In 14 days, you can use a pair of clean scissors and cut the suture that is left outside of the skin at the ends of your incision. 1. The small skin tapes can be removed 7 days after surgery if they have not fallen off by that point. 2. You may keep the wound open to air as much as possible to promote healing after post-op day number 5 unless told otherwise by your doctor. 3. If you think the wound looks like it is becoming infected (redness or worsening drainage) and/or you are experiencing fever, chill or worsening back pain and muscle spasms, contact the office so that we may evaluate you as soon as possible. B. Complications are uncommon, but please contact us if you have any signs or symptoms of: 1. wound infection (fever higher than 102.5 degrees F, redness, separation of wound, drainage, or increasing pain from the incision) 2. blood clots in legs (pain, swelling, redness and warmth in legs) 3. urinary tract infection (fever higher than 102.5 degrees F, burning upon urination or increased frequency of urination) 4. nerve problems (inability to walk on your toes or heels, numbness, loss of bowel or bladder control) 5. any other symptoms that concern you C. Please call the office at if you have any concerns or questions about your operation or recovery. D. No smoking! Smoking drastically decreases the chance of a solid fusion. E. Do not take any anti-inflammatory medications (Indocin, Advil, Motrin, Aspirin, Naprosyn, etc.) as these may inhibit the chance of a solid fusion. Tylenol is okay to take for pain. MANAGING PAIN AFTER SPINAL SURGERY 1. Narcotic medication is intended for short-term use and will be provided for surgical pain. Surgical pain usually lasts for a period of 4-6 weeks. Narcotic medication includes Percocet, Vicodin, Darvocet, Tylenol #3 or Lortab. 2. Longer-term pain is more appropriately treated with non-narcotic medication such as Tylenol ES. 3. Muscle spasm is not appropriately treated with narcotics. Muscle relaxers such as Soma, Flexeril or Skelaxin can be used along with Tylenol ES. 4. Remember that we all live with some "aches and pains". This is not unusual or uncommon after an injury or as we get older. a. Back pain is expected and may include muscle spasms for 4 to 6 weeks after surgery. The pain should gradually improve. If the pain worsens for no apparent reason, please contact the office. b. Intermittent leg pain may also be experienced and should not be concerned about unless it worsens for no apparent reason. If so, please contact the office. 5. We will provide appropriate medication within the normal guidelines of their prescribed use. We will also be very cautious and aware of potential abuse and extended duration of patients' medication needs. a. Pain medications are for your comfort and to assist with sleep and rest so that the tissue can heal. They are not provided in order to return to normal activity and should not be used through the day. To do so or worsening pain at night can result from ongoing tissue damage and development of tolerance to the prescribed medicine. 6. Please allow 2-3 days to process refills. Prescriptions will not be mailed but must be picked up at the office. FOLLOW UP VISIT: Keep your scheduled follow-up appointment. Any questions, please call the office at . Prescriptions: New tramadol 50 mg Tablet 50 mg PO Q4H PRN (Reason: Pain, Moderate) Qty: 30 RF: 0 oxycodone 5 mg Tablet 5 mg PO Q4H PRN (Reason: Pain, Severe) Qty: 30 RF: 0 Continued multivitamin [Multiple Vitamins] Tablet 1 tab PO DAILY RF: 0 aspirin [Aspir-81] 81 mg Tablet,Delayed Release (Dr/Ec) 81 mg PO DAILY RF: 0 simvastatin 20 mg Tablet 20 mg PO HS RF: 0 metformin 1,000 mg Tablet 1,000 mg PO BID RF: 0 lisinopril 10 mg Tablet 10 mg PO QDD RF: 0 omega 8-lhq-egv-fish oil [Fish Oil] 1,000 mg (120 mg-180 mg) Capsule 1 cap PO DAILY RF: 0 Stand-Alone Forms: [facility] Discharge Orders: Discharge Order (Routine); Ordered 07/24/18 Ordered By: Romeo Shaikh Admission Data Admit Date/Time: 07/21/18 15:04 Attending Provider: Romeo Shaikh Admit Provider: Romeo Shaikh Primary Care Provider: George Cosby Other Providers: Yann Delarosa ; Saqib Pappas Service: Surgical Services
--- NOTE | 2018-07-26 12:52 | Discharge Summary ---
Date of Service July 26, 2018 Admission HPI Per Admitting Provider This is a 57-year-old male that presents with back and bilateral leg pain. After failing extensive course of nonoperative care is here for surgical intervention. Principal Diagnosis Spinal stenosis Discharge Data Allergies Allergy/AdvReac Type Severity Reaction Status Date / Time No Known Allergies Allergy Verified 07/05/18 11:47 Consultations 07/21/18 16:00 Consult Case Management - Discharge Planning Routine Consult Hospitalist Routine Procedures Performed Operation Date: 07/21/18 11:45 Actual Procedures p L3-L4 Decompression and Fusion, Insertion of Interbody L3-L4, Spinal Cord Monitoring, Application of OsteoAMP, and Bone Morphogenetic Protein(Not Applicable) - Romeo Shaikh DO s L4-S1 Removal of Hardware;(Not Applicable) - Romeo Shaikh DO Ordered Studies 07/21/18 11:45 FL fluoroscopy <1hr Routine FL lumbar spine 2-3V Routine Hospital Course (1) Lumbar stenosis with neurogenic claudication: Total Time Total Time Spent Total Time Spent (In Minutes): 10 minutes Discharge Plan Discharge Items Patient Disposition: Home - Self-Care Reason For Visit: Spinal Stenosis, Lumbar Region with Neurogenic Discharge Diagnosis: lumbar stenosis Discharge Goals: Decrease discomfort Activity: Per 'Additional Instructions' section Non-emergency contact: Primary Care Provider Call non-emergency contact if: you have any medication questions Follow-up/Referrals: George Cosby MD [Primary Care Provider] - Diet: Regular Addtl Provider Instructions: ACTIVITY RECOMMENDATIONS: SELF CARE INSTRUCTIONS AFTER THORACIC/LUMBAR FUSIONS 1. You may walk to your tolerance. It is good exercise for your legs and back. Expect some back and intermittent leg aches and pains. 2. You may perform "counter-top" level activities (make a sandwich, carlo with a project, etc.). 3. No bending or lifting of more than 10 pounds or back twisting of any nature (roll like a log when turning in bed). 4. You may ride in a car for 20-30 minutes at a time. No driving until after your first visit with your doctor. 5. Frequent changes of position and restricting sitting to 30 minutes at a time will help limit the amount of back spasms and stiffness you may experience. 6. You may discontinue the use of ambulatory aids (cane, crutches, etc.) once your strength and confidence allow. 7. You may incinerator operator the shower and let water strike your incision when you arrive home at least once daily. Do not take a tub bath, sit in a hot tub or go into a swimming pool until after your first recheck in the office. SPECIAL CARE INSTRUCTIONS: VERY IMPORTANT TO READ AND REVIEW A. Your surgical incision has been closed with a cosmetic suture under the skin that will dissolve in about 6 weeks. In 14 days, you can use a pair of clean scissors and cut the suture that is left outside of the skin at the ends of your incision. 1. The small skin tapes can be removed 7 days after surgery if they have not fallen off by that point. 2. You may keep the wound open to air as much as possible to promote healing after post-op day number 5 unless told otherwise by your doctor. 3. If you think the wound looks like it is becoming infected (redness or worsening drainage) and/or you are experiencing fever, chill or worsening back pain and muscle spasms, contact the office so that we may evaluate you as soon as possible. B. Complications are uncommon, but please contact us if you have any signs or symptoms of: 1. wound infection (fever higher than 102.5 degrees F, redness, separation of wound, drainage, or increasing pain from the incision) 2. blood clots in legs (pain, swelling, redness and warmth in legs) 3. urinary tract infection (fever higher than 102.5 degrees F, burning upon urination or increased frequency of urination) 4. nerve problems (inability to walk on your toes or heels, numbness, loss of bowel or bladder control) 5. any other symptoms that concern you C. Please call the office at if you have any concerns or questions about your operation or recovery. D. No smoking! Smoking drastically decreases the chance of a solid fusion. E. Do not take any anti-inflammatory medications (Indocin, Advil, Motrin, Aspirin, Naprosyn, etc.) as these may inhibit the chance of a solid fusion. T ylenol is okay to take for pain. MANAGING PAIN AFTER SPINAL SURGERY 1. Narcotic medication is intended for short-term use and will be provided for surgical pain. Surgical pain usually lasts for a period of 4-6 weeks. Narcotic medication includes Percocet, Vicodin, Darvocet, Tylenol #3 or Lortab. 2. Longer-term pain is more appropriately treated with non-narcotic medication such as Tylenol ES. 3. Muscle spasm is not appropriately treated with narcotics. Muscle relaxers such as Soma, Flexeril or Skelaxin can be used along with Tylenol ES. 4. Remember that we all live with some "aches and pains". This is not unusual or uncommon after an injury or as we get older. a. Back pain is expected and may include muscle spasms for 4 to 6 weeks after surgery. The pain should gradually improve. If the pain worsens for no apparent reason, please contact the office. b. Intermittent leg pain may also be experienced and should not be concerned about unless it worsens for no apparent reason. If so, please contact the office. 5. We will provide appropriate medication within the normal guidelines of their prescribed use. We will also be very cautious and aware of potential abuse and extended duration of patients' medication needs. a. Pain medications are for your comfort and to assist with sleep and rest so that the tissue can heal. They are not provided in order to return to normal activity and should not be used through the day. To do so or worsening pain at night can result from ongoing tissue damage and development of tolerance to the prescribed medicine. 6. Please allow 2-3 days to process refills. Prescriptions will not be mailed but must be picked up at the office. FOLLOW UP VISIT: Keep your scheduled follow-up appointment. Any questions, please call the office at . Prescriptions: New tramadol 50 mg Tablet 50 mg PO Q4H PRN (Reason: Pain, Moderate) Qty: 30 RF: 0 oxycodone 5 mg Tablet 5 mg PO Q4H PRN (Reason: Pain, Severe) Qty: 30 RF: 0 Continued multivitamin [Multiple Vitamins] Tablet 1 tab PO DAILY RF: 0 aspirin [Aspir-81] 81 mg Tablet,Delayed Release (Dr/Ec) 81 mg PO DAILY RF: 0 simvastatin 20 mg Tablet 20 mg PO HS RF: 0 metformin 1,000 mg Tablet 1,000 mg PO BID RF: 0 lisinopril 10 mg Tablet 10 mg PO QDD RF: 0 omega 4-mhd-ric-fish oil [Fish Oil] 1,000 mg (120 mg-180 mg) Capsule 1 cap PO DAILY RF: 0 Stand-Alone Forms: [employer] [facility] [place], Opioid Pain Management [employer]/Other Patient Handouts: Tips Back Post Op Discharge Orders: Discharge Order (Routine); Ordered 07/24/18 Ordered By: Romeo Shaikh Admission Data Admit Date/Time: 07/21/18 15:04 Attending Provider: Romeo Shaikh Admit Provider: Romeo Shaikh Primary Care Provider: George Cosby Other Providers: Yann Delarosa Service: Surgical Services Other Interventions: Discharge Summary Assessment (RN) Last Done: 07/24/18 10:39 DC Date/Time DO NOT enter until pt leaves facility: 07/24/18 11:22
== END 2018-07-24 11:22 | disposition home or self-care (01) | DRG 455 ==
LOC: ASU 09:51 → 3E 15:04